=== PATIENT | female | born 1955 | race Caucasian/White ===

== ENCOUNTER 2024-02-06 23:16 | Emergency (ER) | payer SELFPAY ==
[~2024-02-06] VITALS: Ht 160 cm; Wt 68.2 kg
[~2024-02-06 23:16] MED LIST: ASPIRIN 81M81 MG/TA2 PO; AVAPRO TAB150 MG/TAB PO; HORMONE; ZOLOFT 50MG50 MG PO
[2024-02-06] MEDS ORDERED: LR 1,000 ML IV ONE (23:45)
[2024-02-06 23:46] VITALS: TEMP 98.1
[2024-02-07 00:12] LABS: BASO % 0.4 % (0.0-2.0); EOS # 0.2 K/mm3 (0.0-0.7); GRAN # 1.5 K/mm3 (1.4-6.5); GRAN % 28.6 % (42.2-75.2); HEMOGLOBIN 14.6 g/dl (12.5-16.0); LYMPH # 2.5 K/mm3 (1.2-3.4); LYMPH % 50.2 % (20.0-51.0); MEAN CELL VOLUME 96 fl (80.0-100.0); MEAN CORPUSCULAR HEMOGLOBIN 33 pg (27-31); MEAN CORPUSCULAR HGB CONC 34 g/dl (33.0-37.0); MEAN PLATELET VOLUME 10.7 fl (7.4-10.4); MONO # 0.8 K/mm3 (0.1-0.6); MONO % 16.2 % (1.7-9.3); PLATELET COUNT 201 K/mm3 (130-400); RED BLOOD COUNT 4.46 M/mm3 (4.10-5.30)
[2024-02-07 00:35] LABS: URINE APPEARANCE CLEAR (CLEAR/HAZY); URINE BLOOD NEGATIVE (NEGATIVE); URINE COLOR YELLOW (YELLOW); URINE GLUCOSE TRACE (NEGATIVE); URINE KETONE NEGATIVE (NEGATIVE); URINE NITRATE NEGATIVE (NEGATIVE); URINE PROTEIN(semi-quant) NEGATIVE (NEGATIVE); URINE UROBILINOGEN 0.2 E.U/dL (0.2-1.0)
[2024-02-07 00:44] LABS: GLUCOSE 168 mg/dL (70-99)
[2024-02-07 00:45] LABS: ALANINE AMINOTRANSFERASE 23 U/L (0-55); ALBUMIN 3.7 g/dL (3.4-4.8); ALKALINE PHOSPHATASE 90 U/L (40-150); ANION GAP 10 mmol/L (7-16); AST,SGOT 15 U/L (5-34); BILIRUBIN,TOTAL 0.2 mg/dL (0.2-1.2); BLOOD UREA NITROGEN 16 mg/dL (10-20); CALCIUM 10.1 mg/dL (8.4-10.2); CHLORIDE 110 mEq/L (98-107); POTASSIUM 3.8 mEq/L (3.5-4.5); SODIUM 141 mEq/L (136-145); TOTAL PROTEIN 6.8 g/dl (6.2-8.1)
[2024-02-07 00:58] LABS: TROPONIN-I < 0.010 ng/mL (0.00-0.033)
[2024-02-07 01:01] LABS: COLLECTION METHOD CLEAN CATCH
[2024-02-07] MEDS ORDERED: dexAMETHasone 10 MG/ML VIAL PO ONE (02:15)
[2024-02-07] MEDS ORDERED: PAXLOVID 150-11 EACH PO ×2 (02:15→10:24)
[2024-02-07] MEDS ORDERED: TESSALON P100 MG/CAP PO ×2 (02:16→10:24)
[2024-02-07 02:43] VITALS: BP 136/75; PULSE 88
== END 2024-02-07 02:48 | disposition home or self-care (01) ==
LOC: COL.ER 23:16
PROVIDERS: Emergency Medicine
DX: U07.1 COVID-19 (principal)
CPT/HCPCS: J1100; J7120